=== PATIENT | male | born 1990 | race Caucasian/White ===

== ENCOUNTER 2016-11-15 20:02 | Emergency (ER) | payer OTHER ==
--- NOTE | 2016-11-15 23:02 | ED NURSING NOTES ---
Clinical Report - Nurses [facility] [address] [place] [address] 11/15/2016 20:01 Patient: JINA TOLEDO TRIAGE Triage time 20:15 Nov 15 2016. Chief Complaint: (Tachycardia). Alert. BRYANNA COMA SCORE: [place] Coma Scale: 15- eyes open spontaneously (4); best verbal response- oriented x 4 (5); best motor response- obeys commands (6). --20:31 Constantino Brenner R.N. 20:21 11/15/16. BP: 90/59. HR: 117. RR: 16. O2 saturation: 99% on room air. Temp: 99.3 F (oral). Pain level now: 2/10. Additional comments: Painful joints. --20:31 Constantino Brenner R.N. 20:25. --21:17 Constantino Brenner R.N. Weight: 77.1 kg stated. Height/Length: 71 inches Per Patient. BMI: 23.7. --20:24 Constantino Brenner R.N. Medications Suboxone Sublingual. --20:27 Constantino Brenner R.N. Allergies No Known Drug Allergy. --20:26 Constantino Brenner R.N. Medication/allergy information source: the patient. --20:31 Constantino Brenner R.N. History Arrived by EMS, and (MEDIC 46). Primary physician (Dori). ( Tachycardia after injecting Methamphetamine this morning @ 0400.). This started today. Reports muscle aches. Treatment LINE APPLIANCE ASSEMBLER: None. PAST MEDICAL HX: Immunizations: up-to-date. SOCIAL HX: Heavy tobacco smoker- 1 pack per day. History of drug use: heroin, methamphetamines, marijuana. No alcohol use. ABUSE ASSESSMENT: No report of abuse. FALL RISK ASSESSMENT: Fall risk assessment completed. No fall risk identified. NUTRITIONAL RISK ASSESSMENT: The nutritional risk assessment revealed no deficiencies. FUNCTIONAL ASSESSMENT: Functional assessment: no impairments noted. LEARNING NEEDS ASSESSMENT: The learning needs assessment revealed no barriers. SKIN INTEGRITY ASSESSMENT: Skin integrity risk assessment completed. No skin integrity risk identified. --20:31 Constantino Brennre R.N. ( Laceration to (L) Forehead, which pt states that he got yesterday when he fell and hit a piece of furniture..). --21:17 Constantino Brenner R.N. PROBLEMS: Narcotic Withdrawal. Substance Abuse. --20:30 Constantino Brenner R.N. ADDITIONAL SURGERIES: Knee Surgery. --20:30 Constantino Brenner R.N. Interventions ID band on patient. To treatment room. --20:31 Constantino Brenner R.N. PHYSICAL ASSESSMENT Ambulatory to room. GENERAL / NEURO / PSYCH: Alert. Oriented X 4. HEENT: No facial asymmetry noted. Mucous membranes are pink. RESPIRATORY: Respirations not labored. CVS: Cardiac rhythm: sinus tachycardia. GI / : Abdomen soft and nontender. SKIN: Skin intact. Skin is warm and dry. Normal skin turgor. --20:32 Constantino Brenner R.N. NURSING PROGRESS NOTES monitoring specialist, pulse oximeter and NIBP monitor placed on patient; monitoring specialist- Lead II and V1; monitor alarms on. Patient gowned. Reassurance given. Patient identifiers checked. Call light placed in reach. Side rails up. Bed placed in lowest position. Brakes of bed on. Patient ready for evaluation- chart flagged and ED physician notified. --20:33 Constantino Brenner R.N. EKG time: (2042). EKG was ordered, performed by a tech and shown to the PA. --20:47 Amanda Kelly Wound irrigated; patient tolerated procedure well (2100: wound irrigated with sodium chloride). --21:04 Amanda Kelly 20:52 11/15/2016 Site #1 started via IV in the right hand with an 20g angiocath, with aseptic technique and good blood return; one attempt. Blood drawn: rainbow set. Labeled in the presence of the patient and sent to the lab. Saline lock flushed with 10 mL saline. --21:07 Constantino Brenner R.N. 20:57 11/15/2016 Started bag #1 1000 mL IV Fluids IV NS (Saline); at 1000 mL/hr over 60 minute(s) via site #1. Allergies verified and confirmed 5 rights. IV patency established. IV site checked: no pain, redness, or swelling. IV flushed thoroughly pre- and post-medication administration. --21:07 Constantino Brenner R.N. 21:33 11/15/16. BP: 128/71. HR: 111. RR: 16. O2 saturation: 97% on room air. --21:34 Constantino Brenner R.N. 22:10 11/15/2016 IV Fluids IV NS Bag Change: bag #1 infused. Total amount infused: 1000. STARTED bag #2 (1000 mL) at 1000 mL/hr. Confirmed 5 rights. IV patency established. IV site checked: no pain, redness, or swelling. IV flushed thoroughly. --22:35 Constantino Brenner R.N. 22:30 11/15/16. BP: 126/82. HR: 122. RR: 16. O2 saturation: 99%. Pain level now: 11/12. --22:52 Constantino Brenner R.N. DISPOSITION / DISCHARGE Condition at departure: improved. The goals identified in the patient's plan of care were met. Reviewed medication(s) side effects, precautions, dosing and course information. Prescription(s) given to the patient. Patient verbalized understanding. Written instructions provided in Hebrew. The patient was discharged home and accompanied by parent. He left the Emergency Department ambulatory and via private vehicle. Parent driving. FALL RISK ASSESSMENT: Fall risk assessment completed. No fall risk identified. --00:03 Tino Nicole R.N. 00:01 11/16/16. BP: 107/71 taken on the left arm, via an automated monitor, while lying. HR: 115. RR: 18. O2 saturation: 99%. Temp: 98.2 F (oral). --00:03 Tino Nicole R.N. 00:03 11/16/2016 Site #1 removed upon discharge. Catheter intact. --00:03 Tino Nicole R.N. Locked/Released at 11/16/2016 0:06 by Tino Nicole R.N.
--- NOTE | 2016-11-15 23:02 | ED ORDER SUMMARY ---
..... Patient: JINA TOLEDO OrderSheet [facility] VisitID: [id number] [place] [address] 26y, M Registration Date/Time: 11/15/2016 ORDER SHEET Weight: 77.1 kg (stated) Allergies: No Known Drug Allergy GENERAL ORDERS: Audit Director (Continuous) (20:24 11/15/2016 EKoroleva P.A.-C) (Ack 20:28 LMuller) (21:06 JRomanelli R.N.) CBC w Diff Urgent (20:24 11/15/2016 EKoroleva P.A.-C) (Ack 20:28 LMuller) (21:06 JRomanelli R.N.) BMP Urgent (20:11/15/2016 EKoroleva P.A.-C) (Ack 20:28 LMuller) (21:06 JRomanelli R.N.) EKG - ER Stat (20:24 11/15/2016 EKoroleva P.A.-C) (Ack 20:28 LMuller) (20:42 LMuller) Urine Drug Screen Urgent (22:02 11/15/2016 EKoroleva P.A.-C) (Ack 22:21 CHategekimana) (22:22 CHategekimana) UA-Culture if indicated Urgent (22:02 11/15/2016 EKoroleva P.A.-C) (Ack 22:21 CHategekimana) (22:22 CHategekimana) MEDICATION ORDERS: IV FLUIDS: IV NS : initial bolus 1000 mL (1000 mL/hr), then 1000 mL/hr for X1 (NOW); Nic (20:24 11/15/2016 EKoroleva P.A.-C) (21:07 JRomanelli R.N.) ORDER SHEET NOTES: [Electronically signed by Laina Gates P.A.-C (22:41 11/15/2016)] [Electronically signed by Tino Nicole R.N. (00:06 11/16/2016)] [Electronically locked/signed by Tino Nicole R.N. (00:06 11/16/2016)]
--- NOTE | 2016-11-15 23:02 | ED NURSING NOTES ---
Clinical Report - Nurses [facility] [address] [place] [address] 11/15/2016 20:01 Patient: JINA TOLEDO TRIAGE Triage time 20:15 Nov 15 2016. Chief Complaint: (Tachycardia). Alert. BRYANNA COMA SCORE: [place] Coma Scale: 15- eyes open spontaneously (4); best verbal response- oriented x 4 (5); best motor response- obeys commands (6). --20:31 Constantino Brenner R.N. 20:21 11/15/16. BP: 90/59. HR: 117. RR: 16. O2 saturation: 99% on room air. Temp: 99.3 F (oral). Pain level now: 2/10. Additional comments: Painful joints. --20:31 Constantino Brenner R.N. 20:25. --21:17 Constantino Brenner R.N. Weight: 77.1 kg stated. Height/Length: 71 inches Per Patient. BMI: 23.7. --20:24 Constantino Brenner R.N. Medications Suboxone Sublingual. --20:27 Constantino Brenner R.N. Allergies No Known Drug Allergy. --20:26 Constantino Brenner R.N. Medication/allergy information source: the patient. --20:31 Constantino Brenner R.N. History Arrived by EMS, and (MEDIC 46). Primary physician (Dori). ( Tachycardia after injecting Methamphetamine this morning @ 0400.). This started today. Reports muscle aches. Treatment DEVELOPMENT INTERN: None. PAST MEDICAL HX: Immunizations: up-to-date. SOCIAL HX: Heavy tobacco smoker- 1 pack per day. History of drug use: heroin, methamphetamines, marijuana. No alcohol use. ABUSE ASSESSMENT: No report of abuse. FALL RISK ASSESSMENT: Fall risk assessment completed. No fall risk identified. NUTRITIONAL RISK ASSESSMENT: The nutritional risk assessment revealed no deficiencies. FUNCTIONAL ASSESSMENT: Functional assessment: no impairments noted. LEARNING NEEDS ASSESSMENT: The learning needs assessment revealed no barriers. SKIN INTEGRITY ASSESSMENT: Skin integrity risk assessment completed. No skin integrity risk identified. --20:31 Constantino Brenner R.N. ( Laceration to (L) Forehead, which pt states that he got yesterday when he fell and hit a piece of furniture..). --21:17 Constantino Brenner R.N. PROBLEMS: Narcotic Withdrawal. Substance Abuse. --20:30 Constantino Brenner R.N. ADDITIONAL SURGERIES: Knee Surgery. --20:30 Constantino Brenner R.N. Interventions ID band on patient. To treatment room. --20:31 Constantino Brenner R.N. PHYSICAL ASSESSMENT Ambulatory to room. GENERAL / NEURO / PSYCH: Alert. Oriented X 4. HEENT: No facial asymmetry noted. Mucous membranes are pink. RESPIRATORY: Respirations not labored. CVS: Cardiac rhythm: sinus tachycardia. GI / : Abdomen soft and nontender. SKIN: Skin intact. Skin is warm and dry. Normal skin turgor. --20:32 Constantino Brenner R.N. NURSING PROGRESS NOTES processor helper, pulse oximeter and NIBP monitor placed on patient; correctional officer chief- Lead II and V1; monitor alarms on. Patient gowned. Reassurance given. Patient identifiers checked. Call light placed in reach. Side rails up. Bed placed in lowest position. Brakes of bed on. Patient ready for evaluation- chart flagged and ED physician notified. --20:33 Constantino Brenner R.N. EKG time: (2042). EKG was ordered, performed by a tech and shown to the PA. --20:47 Amanda Kelly Wound irrigated; patient tolerated procedure well (2100: wound irrigated with sodium chloride). --21:04 Amanda Kelly 20:52 11/15/2016 Site #1 started via IV in the right hand with an 20g angiocath, with aseptic technique and good blood return; one attempt. Blood drawn: rainbow set. Labeled in the presence of the patient and sent to the lab. Saline lock flushed with 10 mL saline. --21:07 Constantino Brenner R.N. 20:57 11/15/2016 Started bag #1 1000 mL IV Fluids IV NS (Saline); at 1000 mL/hr over 60 minute(s) via site #1. Allergies verified and confirmed 5 rights. IV patency established. IV site checked: no pain, redness, or swelling. IV flushed thoroughly pre- and post-medication administration. --21:07 Constantino Brenner R.N. 21:33 11/15/16. BP: 128/71. HR: 111. RR: 16. O2 saturation: 97% on room air. --21:34 Constantino Brenner R.N. 22:10 11/15/2016 IV Fluids IV NS Bag Change: bag #1 infused. Total amount infused: 1000. STARTED bag #2 (1000 mL) at 1000 mL/hr. Confirmed 5 rights. IV patency established. IV site checked: no pain, redness, or swelling. IV flushed thoroughly. --22:35 Constantino Brenner R.N. 22:30 11/15/16. BP: 126/82. HR: 122. RR: 16. O2 saturation: 99%. Pain level now: 11/12. --22:52 Constantino Brenner R.N. DISPOSITION / DISCHARGE Condition at departure: improved. The goals identified in the patient's plan of care were met. Reviewed medication(s) side effects, precautions, dosing and course information. Prescription(s) given to the patient. Patient verbalized understanding. Written instructions provided in Yakut. The patient was discharged home and accompanied by parent. He left the Emergency Department ambulatory and via private vehicle. Parent driving. FALL RISK ASSESSMENT: Fall risk assessment completed. No fall risk identified. --00:03 Tino Nicole R.N. 00:01 11/16/16. BP: 107/71 taken on the left arm, via an automated monitor, while lying. HR: 115. RR: 18. O2 saturation: 99%. Temp: 98.2 F (oral). --00:03 Tino Nicole R.N. 00:03 11/16/2016 Site #1 removed upon discharge. Catheter intact. --00:03 Tino Nicole R.N. Locked/Released at 11/16/2016 0:06 by Tino Nicole R.N.
--- NOTE | 2016-11-15 23:02 | ED CLINICAL REPORT ---
Clinical Report - Physicians/Mid Levels [facility] [address] [place] [address] 11/15/2016 20:01 Patient: JINA TOLEDO Time Seen: 20:33 Nov 15 2016. Arrived- By ambulance. Historian- EMS personnel. HISTORY OF PRESENT ILLNESS Chief Complaint: "GOT THE SHAKES" and BIZARRE BEHAVIOR. Symptoms started today. No fever or nausea. Pt using meth, reports agitated at home, family concerned, tachycardic, injury to head, unsure, no loc. NO headache. REVIEW OF SYSTEMS The patient has not had weight loss. No headache, dizziness, chest pain, sore throat or cough. No difficulty with urination, joint pain or enlarged lymph nodes. All systems otherwise negative, except as recorded above. SOCIAL HISTORY History of drug use iv heroin/meth. suboxone. Has social support. Has place to stay. ADDITIONAL NOTES The nursing notes have been reviewed. PHYSICAL EXAM Vital Signs: 11/15/2016 20:21 BP: 90/59. HR: 117. RR: 16. O2 saturation: 99%. Temp: 99.3 F. Pain level now: 2/10. Appearance: Alert. Head: Head atraumatic. Forehead: superficial laceration of the central forehead (abrasion at hair line.). No puncture wound, foreign body or deformity. Eyes: Pupils equal, round and reactive to light. ENT: Normal ENT inspection. Airway intact. Moist mucous membranes. No trouble handling secretions. Neck: Normal inspection. Neck supple. CVS: Tachycardia. Heart sounds normal. Respiratory: No respiratory distress. Breath sounds normal. Abdomen: Soft. No abdominal tenderness. Back: Normal inspection. No CVA tenderness. Neuro: Alert. Oriented X 3. Mood/affect normal. Cranial nerves normal (as tested). No cerebellar findings. LABS, X-RAYS, AND EKG EKG: EKG time: (2042). No acute process. No acute ischemia. Rate: 107. Tachycardia (107). Normal P waves. Normal HILARIO. Normal ST and T waves and QT. The study has been independently viewed by me. The EKG appears to be a good tracing. Laboratory Tests: UA-Culture if indicated: (YRIS: 11/15/2016 22:08) ( [facility] 11/15/2016 22:33) Final results Test Result Flag Units (Reference) URINE COLOR YELLOW URINE APPEARANCE SLIGHTLY HAZY URINE GLUCOSE NEGATIVE (NEGATIVE) URINE BILIRUBIN NEGATIVE (NEGATIVE) URINE KETONE 1+ (NEGATIVE) URINE SPECIFIC GRAVITY >= 1.030 (1.010-1.030) URINE PH 5.5 (5.0-8.0) URINE PROTEIN 1+ (NEGATIVE) URINE UROBILINOGEN 0.2 EU/dL (0.2-1.0) URINE NITRITE NEGATIVE (NEGATIVE) URINE BLOOD NEGATIVE (NEGATIVE) URINE LEUK ESTERASE NEGATIVE (NEGATIVE) URINE RBC 0-1 rbc/hpf (0-1) URINE WBC 0-1 wbc/hpf (0-1) URINE EPITHELIAL CELLS NONE SEEN EPI/hpf (0-5) URINE BACTERIA NONE SEEN (NONE SEEN) URINE COMMENT CULT NOT INDICATED HYALINE CAST: 5-10/LPFURINE CULTURES ARE SET-UP BASED ON THE FOLLOWING CRITERIA:POSITIVE NITRITEPOSITIVE LEUKOCYTE ESTERASEGREATER THAN 10 WHITE BLOOD CELLSMODERATE (2+) OR GREATER BACTERIA CBC w Diff: (YRIS: 11/15/2016 20:45) ( [facility] [place] 11/15/2016 21:03) Final results Test Result Flag Units (Reference) WHITE BLOOD COUNT 11.9 H K/uL (4.5-11.5) RED BLOOD COUNT 4.41 L M/uL (4.50-5.90) HEMOGLOBIN 13.1 L gm/dL (13.5-17.5) HEMATOCRIT 39.3 L % (41.0-53.0) MEAN CELL VOLUME 89 fL (80-100) MEAN CORPUSCULAR HGB 30 pg (26-34) MEAN CORPUSCULAR HGB CONC 33 g/dL (31-37) RED CELL DISTRIBUTION WIDTH 14.3 % (11.6-14.8) PLATELET COUNT 268 K/uL (150-400) NEUTROPHIL % 69.0 % (50-75) LYMPH % 16.4 L % (25-40) MONO % 11.6 % (3-14) EOSINOPHIL % 1.4 % (0-4) BASOPHIL % 1.6 % (0-2) Urine Drug Screen: (YRIS: 11/15/2016 22:08) ( MsgRcvd 11/15/2016 22:38) Final results Test Result Flag Units (Reference) AMPHETAMINE/METHAMPHETAMINE POSITIVE H (NEGATIVE) BARBITURATE NEGATIVE (NEGATIVE) BENZODIAZEPINE NEGATIVE (NEGATIVE) CANNABINOID POSITIVE H (NEGATIVE) COCAINE NEGATIVE (NEGATIVE) ECSTASY POSITIVE H (NEGATIVE) METHADONE NEGATIVE (NEGATIVE) OPIATE POSITIVE H (NEGATIVE) The urine drug screen is a qualitative screening test fordrug overdose and abuse. All screen results should beconsidered as presumptive.Drugs screened for are as follows:BenzodiazepinesCocaineAmphetamines/MetamphetaminesTHC (Tetrahydrocannabinol)OpiatesBarbituratesEcstasyMethadonePositive results are unconfirmed. For confirmation, notifythe lab for the specimen to be sent to the reference lab.All confirmations must be performed by a differentmethodology.The ingestion of natural herbal and plant productscontaining Ephedra/Ephedra metabolites can produce in urineone or more substances capable of cross reacting withamphetamine/methamphetamine immunoassays. These testsprovide a preliminary result only. A more specificalternative chemical method must be used to obtain aconfirmed analytical result. BMP: (YRIS: 11/15/2016 20:45) ( MsgRcvd 11/15/2016 21:43) Final results Test Result Flag Units (Reference) GLUCOSE 69 L mg/dL (70-110) BUN 18 mg/dL (7-18) CREATININE 1.0 mg/dL (0.6-1.3) Estimated GFR >60 mL/min Estimated GFR- >60 mL/min Note: Persistent reduction over 3 months in eGFR<60 mL/min/1.73 m2 defines CKD. Patients with eGFR values>=60 mL/min/1.73 m2 may also have CKD if evidence ofpersistent proteinuria. Additional information may be foundat www.kidney.org. SODIUM 133 L mmol/L (136-145) POTASSIUM 4.1 mmol/L (3.5-5.1) CHLORIDE 95 L mmol/L (98-107) CARBON DIOXIDE 21 mmol/L (21-32) CALCIUM 9.1 mg/dL (8.5-10.1) . PROGRESS AND PROCEDURES Course of Care: Pt in the er with tachycardia, moving, and under influence. Small abrasion to scalp, and otherwise aao x 3. Pt with no si/ hi Poly substance abuse. Given IV NS in the ER. 11/15/2016 21:33 BP: 128/71. HR: 111. RR: 16. O2 saturation: 97%. Patient is stable. Patient/family counseled. Disposition: Discharged. CLINICAL IMPRESSION Single superficial abrasion to the forehead. Lifestyle Substance Problem. INSTRUCTIONS Prescription Medications: Zofran (orally disintegrating tablets) 4 mg: take 1 orally for 3 days as needed for nausea. Dispense ten (10). No refill. Substitution is permissible. Follow-up: Follow up with your doctor in three days. (Electronically signed by Laina Gates P.A.-C 11/15/2016 22:41)
--- NOTE | 2016-11-15 23:02 | ED ORDER SUMMARY ---
..... Patient: JINA TOLEDO OrderSheet [facility] VisitID: [id number] [place] [address] 26y, M Registration Date/Time: 11/15/2016 ORDER SHEET Weight: 77.1 kg (stated) Allergies: No Known Drug Allergy GENERAL ORDERS: Automation Developer (Continuous) (20:24 11/15/2016 EKoroleva P.A.-C) (Ack 20:28 LMuller) (21:06 JRomanelli R.N.) CBC w Diff Urgent (20:24 11/15/2016 EKoroleva P.A.-C) (Ack 20:28 LMuller) (21:06 JRomanelli R.N.) BMP Urgent (20:11/15/2016 EKoroleva P.A.-C) (Ack 20:28 LMuller) (21:06 JRomanelli R.N.) EKG - ER Stat (20:24 11/15/2016 EKoroleva P.A.-C) (Ack 20:28 LMuller) (20:42 LMuller) Urine Drug Screen Urgent (22:02 11/15/2016 EKoroleva P.A.-C) (Ack 22:21 CHategekimana) (22:22 CHategekimana) UA-Culture if indicated Urgent (22:02 11/15/2016 EKoroleva P.A.-C) (Ack 22:21 CHategekimana) (22:22 CHategekimana) MEDICATION ORDERS: IV FLUIDS: IV NS : initial bolus 1000 mL (1000 mL/hr), then 1000 mL/hr for X1 (NOW); Nic (20:24 11/15/2016 EKoroleva P.A.-C) (21:07 JRomanelli R.N.) ORDER SHEET NOTES: [Electronically signed by Laina Gates P.A.-C (22:41 11/15/2016)] [Electronically signed by Tino Nicole R.N. (00:06 11/16/2016)] [Electronically locked/signed by Tino Nicole R.N. (00:06 11/16/2016)]
--- NOTE | 2016-11-16 00:07 | ED MED RECONCILIATION SUMMARY ---
Patient: JINA TOLEDO Medication Reconciliation Report [facility] VisitID: [id number] [address] [place] [address] 26y, M Registration Date/Time: 11/15/2016 Weight: 77.1 kg Height/Length: 71 in. BMI: 23.7 ALLERGIES: No Known Drug Allergy The patient's Home Medications are listed below: THE FOLLOWING MEDICATIONS NEED TO BE RECONCILED: Suboxone Sublingual The source(s) of the original Home Medication information: patient The following Medications were given to the patient in the Emergency Department: IV NS IV Fluids bolus 0, then 1000 mL/hr, administered: 11/15/2016 8:57:00 PM The following Medications were prescribed to the patient: Zofran (orally disintegrating tablets) 4 mg: take 1 orally for 3 days as needed for nausea. Dispense ten (10). No refill. Substitution is permissible. -- Laina Gates, PCitlalliC
--- NOTE | 2016-11-16 00:07 | ED DISCHARGE INSTRUCTIONS ---
Patient: JINA TOLEDO General Instructions [facility] VisitID: [id number] [place] [address] 26y, M Registration Date/Time: 11/15/2016 Single superficial abrasion to the forehead. Lifestyle Substance Problem. INSTRUCTIONS Prescription Medications: Zofran (orally disintegrating tablets) 4 mg: take 1 orally for 3 days as needed for nausea. Dispense ten (10). No refill. Substitution is permissible. Follow-up: Follow up with your doctor in three days. ADDITIONAL INFORMATION Abrasions Abrasions are skin scrapes. Their treatment depends on how large and deep the abrasion is. Home Care: If you were given a bandage, change it once a day. If your bandage sticks to the wound, soak it in warm water until it loosens. Wash the area with soap and water to remove all the cream/ointment. You may do this in a sink, under a tub faucet or shower. Rinse off the soap and pat dry with a clean towel. Reapply cream/ointment according to your doctor's instructions. This will prevent infection and help prevent the bandage from sticking. Cover the wound with a fresh non-stick bandage (Telfa). Repeat steps 1 to 4 daily, or as directed by your doctor. If the bandage becomes wet or dirty, change it as soon as possible. You may use acetaminophen (Tylenol) or ibuprofen (Motrin, Advil) to control pain, unless another pain medicine was prescribed. [ NOTE : If you have chronic liver or kidney disease or ever had a stomach ulcer or GI bleeding, talk with your doctor before using these medicines.] Do not use ibuprofen in children under six months of age. Follow Up with your physician or this facility as directed by our staff. Most skin wounds heal within ten days. However, an infection may occur despite proper treatment. Therefore, look for the early signs of infection listed below. Get Prompt Medical Attention if any of the following occur: Increasing pain in the wound Increasing redness or swelling Pus coming from the wound Fever of 100.4F (38C) or higher, or as directed by your healthcare provider Ondansetron Hydrochloride Oral tablet What is this medicine? ONDANSETRON (on JULIA se tripp) is used to treat nausea and vomiting caused by chemotherapy. It is also used to prevent or treat nausea and vomiting after surgery. How should I use this medicine? Take this medicine by mouth with a glass of water. Follow the directions on your prescription label. Take your doses at regular intervals. Do not take your medicine more often than directed. Talk to your motor vehicle clerk regarding the use of this medicine in children. Special care may be needed. What side effects may I notice from receiving this medicine? Side effects that you should report to your doctor or health child care centre director as soon as possible: allergic reactions like skin rash, itching or hives, swelling of the face, lips or tongue breathing problems dizziness fast or irregular heartbeat feeling faint or lightheaded, falls fever and chills swelling of the hands or feet tightness in the chest Side effects that usually do not require medical attention (report to your doctor or health child care centre director if they continue or are bothersome): constipation or diarrhea headache What may interact with this medicine? Do not take this medicine with any of the following medications: -apomorphine -cisapride -dofetilide -dronedarone -pimozide -thioridazine -ziprasidone This medicine may also interact with the following medications: -carbamazepine -phenytoin -rifampicin -tramadol -other medicines that prolong the QT interval (cause an abnormal heart rhythm) What if I miss a dose? If you miss a dose, take it as soon as you can. If it is almost time for your next dose, take only that dose. Do not take double or extra doses. Where should I keep my medicine? Keep out of the reach of children. Store between 2 and 30 degrees C (36 and 86 degrees F). Throw away any unused medicine after the expiration date. What should I tell my health care provider before I take this medicine? They need to know if you have any of these conditions: heart disease history of irregular heartbeat liver disease low levels of magnesium or potassium in the blood an unusual or allergic reaction to ondansetron, granisetron, other medicines, foods, dyes, or preservatives or trying to get breast-feeding What should I watch for while using this medicine? Check with your doctor or health child care centre director right away if you have any sign of an allergic reaction. You have been given the following additional information: Abrasion Ondansetron Hydrochloride Oral tablet (Electronically signed by Laina Gates P.A.-C 11/15/2016 22:41)
--- NOTE | 2016-11-16 00:07 | ED DISCHARGE INSTRUCTIONS ---
Patient: JINA TOLEDO General Instructions [facility] VisitID: [id number] [place] [address] 26y, M Registration Date/Time: 11/15/2016 Single superficial abrasion to the forehead. Lifestyle Substance Problem. INSTRUCTIONS Prescription Medications: Zofran (orally disintegrating tablets) 4 mg: take 1 orally for 3 days as needed for nausea. Dispense ten (10). No refill. Substitution is permissible. Follow-up: Follow up with your doctor in three days. ADDITIONAL INFORMATION Abrasions Abrasions are skin scrapes. Their treatment depends on how large and deep the abrasion is. Home Care: If you were given a bandage, change it once a day. If your bandage sticks to the wound, soak it in warm water until it loosens. Wash the area with soap and water to remove all the cream/ointment. You may do this in a sink, under a tub faucet or shower. Rinse off the soap and pat dry with a clean towel. Reapply cream/ointment according to your doctor's instructions. This will prevent infection and help prevent the bandage from sticking. Cover the wound with a fresh non-stick bandage (Telfa). Repeat steps 1 to 4 daily, or as directed by your doctor. If the bandage becomes wet or dirty, change it as soon as possible. You may use acetaminophen (Tylenol) or ibuprofen (Motrin, Advil) to control pain, unless another pain medicine was prescribed. [ NOTE : If you have chronic liver or kidney disease or ever had a stomach ulcer or GI bleeding, talk with your doctor before using these medicines.] Do not use ibuprofen in children under six months of age. Follow Up with your physician or this facility as directed by our staff. Most skin wounds heal within ten days. However, an infection may occur despite proper treatment. Therefore, look for the early signs of infection listed below. Get Prompt Medical Attention if any of the following occur: Increasing pain in the wound Increasing redness or swelling Pus coming from the wound Fever of 100.4F (38C) or higher, or as directed by your healthcare provider Ondansetron Hydrochloride Oral tablet What is this medicine? ONDANSETRON (on JULIA se tripp) is used to treat nausea and vomiting caused by chemotherapy. It is also used to prevent or treat nausea and vomiting after surgery. How should I use this medicine? Take this medicine by mouth with a glass of water. Follow the directions on your prescription label. Take your doses at regular intervals. Do not take your medicine more often than directed. Talk to your surgical device sales representative regarding the use of this medicine in children. Special care may be needed. What side effects may I notice from receiving this medicine? Side effects that you should report to your doctor or health rn patient care as soon as possible: allergic reactions like skin rash, itching or hives, swelling of the face, lips or tongue breathing problems dizziness fast or irregular heartbeat feeling faint or lightheaded, falls fever and chills swelling of the hands or feet tightness in the chest Side effects that usually do not require medical attention (report to your doctor or health rn patient care if they continue or are bothersome): constipation or diarrhea headache What may interact with this medicine? Do not take this medicine with any of the following medications: -apomorphine -cisapride -dofetilide -dronedarone -pimozide -thioridazine -ziprasidone This medicine may also interact with the following medications: -carbamazepine -phenytoin -rifampicin -tramadol -other medicines that prolong the QT interval (cause an abnormal heart rhythm) What if I miss a dose? If you miss a dose, take it as soon as you can. If it is almost time for your next dose, take only that dose. Do not take double or extra doses. Where should I keep my medicine? Keep out of the reach of children. Store between 2 and 30 degrees C (36 and 86 degrees F). Throw away any unused medicine after the expiration date. What should I tell my health care provider before I take this medicine? They need to know if you have any of these conditions: heart disease history of irregular heartbeat liver disease low levels of magnesium or potassium in the blood an unusual or allergic reaction to ondansetron, granisetron, other medicines, foods, dyes, or preservatives or trying to get breast-feeding What should I watch for while using this medicine? Check with your doctor or health rn patient care right away if you have any sign of an allergic reaction. You have been given the following additional information: Abrasion Ondansetron Hydrochloride Oral tablet (Electronically signed by Laina Gates P.A.-C 11/15/2016 22:41)
--- NOTE | 2016-11-16 00:07 | ED MAR SUMMARY ---
..... Medication Administration Record [facility] [address] [place] [address] Patient: JINA TOLEDO Visit ID: [id number] 26y, M Weight: 77.1 kg Height/Length: 71 in BMI: 23.7 ALLERGIES: No Known Drug Allergy Start 20:57 11/15/2016 Constantino Brenner R.N. Medication Administered: IV NS (SALINE), Dose: IV Fluids over 60 minute(s), Rate: 1000 mL/hr, Dispensed: 1000 mL bag, Site: #1 right hand. Medication Ordered: IV NS : initial bolus 1000 mL (1000 mL/hr), then 1000 mL/hr for X1 (NOW); Nic.
--- NOTE | 2016-11-16 00:07 | ED MAR SUMMARY ---
..... Medication Administration Record [facility] [address] [place] [address] Patient: JINA TOLEDO Visit ID: [id number] 26y, M Weight: 77.1 kg Height/Length: 71 in BMI: 23.7 ALLERGIES: No Known Drug Allergy Start 20:57 11/15/2016 Constantino Brenner R.N. Medication Administered: IV NS (SALINE), Dose: IV Fluids over 60 minute(s), Rate: 1000 mL/hr, Dispensed: 1000 mL bag, Site: #1 right hand. Medication Ordered: IV NS : initial bolus 1000 mL (1000 mL/hr), then 1000 mL/hr for X1 (NOW); Nic.
--- NOTE | 2016-11-16 00:07 | ED MED RECONCILIATION SUMMARY ---
Patient: JINA TOLEDO Medication Reconciliation Report [facility] VisitID: [id number] [address] [place] [address] 26y, M Registration Date/Time: 11/15/2016 Weight: 77.1 kg Height/Length: 71 in. BMI: 23.7 ALLERGIES: No Known Drug Allergy The patient's Home Medications are listed below: THE FOLLOWING MEDICATIONS NEED TO BE RECONCILED: Suboxone Sublingual The source(s) of the original Home Medication information: patient The following Medications were given to the patient in the Emergency Department: IV NS IV Fluids bolus 0, then 1000 mL/hr, administered: 11/15/2016 8:57:00 PM The following Medications were prescribed to the patient: Zofran (orally disintegrating tablets) 4 mg: take 1 orally for 3 days as needed for nausea. Dispense ten (10). No refill. Substitution is permissible. -- Laina Gates, PCitlalliC
== END 2016-11-16 00:08 | disposition home or self-care (01) ==
LOC: ED SRH 20:02
DX: S00.81XA Abrasion of other part of head, initial encounter (principal); X58.XXXA Exposure to other specified factors, initial encounter; Y92.9 Unspecified place or not applicable; Y99.9 Unspecified external cause status; Y93.9 Activity, unspecified; F15.20 Other stimulant dependence, uncomplicated; Z72.89 Other problems related to lifestyle; R00.0 Tachycardia, unspecified
CPT/HCPCS: 90004; 90047; 92760; 92761; 92762; 92763; 92764; 92765; 92766; 92767; 95059

== ENCOUNTER 2017-03-31 12:12 | Emergency (ER) | payer OTHER ==
--- NOTE | 2017-03-31 17:09 | ED NURSING NOTES ---
Clinical Report - Nurses [facility] [place] [address] 03/31/2017 12:13 Patient: JINA TOLEDO TRIAGE Triage time 12:15. Acuity: LEVEL 3. Chief Complaint: DRUG OVERDOSE (Pt was apparently smoking heroin this morning, his friends attempted some CPR when he passed out, pt denies any chest discomfort). --12:25 Sofia Greene R.N. 12:15 03/31/17. BP: 133/79. HR: 79. RR: 6. O2 saturation: 96%. Temp: unable to obtain. Pain level now: 0/10. --12:25 Sofia Greene R.N. 12:26 03/31/17. End tidal CO2: 27 mmHg; with normal waveform via cannula device. --12:26 Sofia Greene R.N. 12:37 03/31/17. Temp: 96.2 F (tympanic). --12:38 Sofia Greene R.N. Weight: 74.8 kg stated. Height/Length: 72 inches Per Patient. BMI: 22.4. --12:18 Sofia Greene R.N. Medications None. --12:17 Sofia Greene R.N. Allergies No Known Drug Allergy. --12:17 Sofia Greene R.N. History Arrived by EMS. Historian: patient. This occurred today. SOCIAL HX: Heavy tobacco smoker (pipe)- less than 1 pack per day. Alcohol use; consumes beer. (5 beers 3 times per week). History of drug use: heroin, methamphetamines, marijuana. --12:25 Sofia Greene R.N. Interventions ID band on patient. To room. --12:25 Sofia Greene R.N. PHYSICAL ASSESSMENT 12:26 03/31/17. GENERAL / NEURO / PSYCH: Altered mental status: lethargic. --12:26 Sofia Greene R.N. NURSING PROGRESS NOTES 12:27 03/31/17. Patient identifiers checked. Call light placed in reach. Bed placed in lowest position. Patient ready for evaluation- chart flagged. --12:27 Sofia Greene R.N. 12:29 03/31/17. RR: 7. End tidal CO2: 30 mmHg. Additional comments: Pt placed in direct view of nurses station. --12:29 Sofia Greene R.N. 12:37 03/31/2017 Site #1 started via IV in the left antecubital space with an 20g angiocath, with aseptic technique and good blood return; one attempt. Blood drawn: rainbow set. Labeled in the presence of the patient and sent to the lab. Saline lock flushed with 10 mL saline. --12:42 Anastacio Delgadillo R.N. 12:50 03/31/17. ( Pt's alarms going off, apneic at times, and other times RR is 3 to 10 breaths per minute. Narcan given.). --12:50 Sofia Greene R.N. 12:51 03/31/2017 Started bag #1 1000 mL IV Fluids IV NS (Saline); at 1000 mL/hr via site #1 via IV pump. Confirmed 5 rights. IV patency established. IV site checked: no pain, redness, or swelling. IV flushed thoroughly pre- and post-medication administration. --12:56 Sofia Greene R.N. 12:51 03/31/2017 Naloxone IVP 0.4 mg given over 2 minute(s) via site #1. Confirmed 5 rights. --12:56 Sofia Greene R.N. 13:03 03/31/17. Reassessment after medication administered. Overall patient status is improved. GENERAL / NEURO / PSYCH: Alert. ( Patient rounding). --13:03 Tanisha Cormier R.N. 13:03/31/17. BP: 132/98. HR: 83. RR: 12. O2 saturation: 100%. --13:03 Tanisha Cormier R.N. 13:03/31/17. Patient ID band checked for patient name and birthdate: patient confirmed. Instructions provided to collect clean catch urine and patient verbalized understanding. Clean catch urine collected with return of yellow-colored clear urine; sample sent to lab for urinalysis. Specimen labeled in the presence of the patient. --13:25 Tanisha Cormier R.N. 15:22 03/31/17. BP: 122/67. HR: 91. RR: 19. O2 saturation: 99%. Pain level now: 0/10. --15:23 Sofia Greene R.N. DISPOSITION / DISCHARGE 17:04 03/31/17. BP: 127/66. HR: 88. RR: 18. O2 saturation: 100%. Temp: 97.5 F. Pain level now: 0/10. --17:04 Sofia Greene R.N. Departure time: 1711. Condition at departure: improved. No learning barriers present. Reviewed warnings (Don't take recreational drugs). Reviewed referral to family practice for followup. Verbalized understanding. Written instructions provided. The patient was discharged home. He left the Emergency Department ambulatory and via private vehicle. Illuminator driving. --17:15 Sofia Greene R.N. Locked/Released at 03/31/2017 17:21 by Sofia Greene R.N.
--- NOTE | 2017-03-31 17:09 | ED ORDER SUMMARY ---
..... Patient: JINA TOLEDO OrderSheet [facility] VisitID: [id number] [place] [address] 27y, M Registration Date/Time: 03/31/2017 ORDER SHEET Weight: 74.8 kg (stated) Allergies: No Known Drug Allergy GENERAL ORDERS: Cardiac Panel Stat (12:03/31/2017 Edu BACK) (Ack 12:51 TBergley) (12:54 TBergley) Urine Drug Screen Urgent (:03/31/2017 Edu BACK) (Ack 12:51 TBergley) (14:16 LSullivan R.N.) Ethyl Alcohol Urgent (:03/31/2017 Edu BACK) (Ack 12:51 TBergley) (12:54 TBergley) Acetaminophen Level Urgent (:03/31/2017 Edu BACK) (Ack 12:51 TBergley) (12:54 TBergley) Salicylate Level Urgent (:03/31/2017 Edu BACK) (Ack 12:51 TBergley) (12:54 TBergley) MEDICATION ORDERS: IV FLUIDS: IV NS : initial bolus 1000 mL (1000 mL/hr), then none - for X1 (NOW); Routine (:03/31/2017 Edu BACK) (12:56 LSullivan R.N.) Naloxone IV 0.4 mg (NOW) (:03/31/2017 Edu BACK) (12:56 LSullivan R.N.) ORDER SHEET NOTES: [Electronically signed by Sofia Greene R.N. (17:03/31/2017)] [Electronically signed by Vince Cruz MD (09:18 04/01/2017)] [Electronically locked/signed by Sofia Greene R.N. (17:03/31/2017)]
--- NOTE | 2017-03-31 17:09 | ED NURSING NOTES ---
Clinical Report - Nurses [facility] [place] [address] 03/31/2017 12:13 Patient: JINA TOLEDO TRIAGE Triage time 12:15. Acuity: LEVEL 3. Chief Complaint: DRUG OVERDOSE (Pt was apparently smoking heroin this morning, his friends attempted some CPR when he passed out, pt denies any chest discomfort). --12:25 Sofia Greene R.N. 12:15 03/31/17. BP: 133/79. HR: 79. RR: 6. O2 saturation: 96%. Temp: unable to obtain. Pain level now: 0/10. --12:25 Sofia Greene R.N. 12:26 03/31/17. End tidal CO2: 27 mmHg; with normal waveform via cannula device. --12:26 Sofia Greene R.N. 12:37 03/31/17. Temp: 96.2 F (tympanic). --12:38 Sofia Greene R.N. Weight: 74.8 kg stated. Height/Length: 72 inches Per Patient. BMI: 22.4. --12:18 Sofia Greene R.N. Medications None. --12:17 Sofia Greene R.N. Allergies No Known Drug Allergy. --12:17 Sofia Greene R.N. History Arrived by EMS. Historian: patient. This occurred today. SOCIAL HX: Heavy tobacco smoker (pipe)- less than 1 pack per day. Alcohol use; consumes beer. (5 beers 3 times per week). History of drug use: heroin, methamphetamines, marijuana. --12:25 Sofia Greene R.N. Interventions ID band on patient. To room. --12:25 Sofia Greene R.N. PHYSICAL ASSESSMENT 12:26 03/31/17. GENERAL / NEURO / PSYCH: Altered mental status: lethargic. --12:26 Sofia Greene R.N. NURSING PROGRESS NOTES 12:27 03/31/17. Patient identifiers checked. Call light placed in reach. Bed placed in lowest position. Patient ready for evaluation- chart flagged. --12:27 Sofia Greene R.N. 12:29 03/31/17. RR: 7. End tidal CO2: 30 mmHg. Additional comments: Pt placed in direct view of nurses station. --12:29 Sofia rGeene R.N. 12:37 03/31/2017 Site #1 started via IV in the left antecubital space with an 20g angiocath, with aseptic technique and good blood return; one attempt. Blood drawn: rainbow set. Labeled in the presence of the patient and sent to the lab. Saline lock flushed with 10 mL saline. --12:42 Anastacio Delgadillo R.N. 12:50 03/31/17. ( Pt's alarms going off, apneic at times, and other times RR is 3 to 10 breaths per minute. Narcan given.). --12:50 Sofia Greene R.N. 12:51 03/31/2017 Started bag #1 1000 mL IV Fluids IV NS (Saline); at 1000 mL/hr via site #1 via IV pump. Confirmed 5 rights. IV patency established. IV site checked: no pain, redness, or swelling. IV flushed thoroughly pre- and post-medication administration. --12:56 Sofia Greene R.N. 12:51 03/31/2017 Naloxone IVP 0.4 mg given over 2 minute(s) via site #1. Confirmed 5 rights. --12:56 Sofia Greene R.N. 13:03 03/31/17. Reassessment after medication administered. Overall patient status is improved. GENERAL / NEURO / PSYCH: Alert. ( Patient rounding). --13:03 Tanisha Cormier R.N. 13:03/31/17. BP: 132/98. HR: 83. RR: 12. O2 saturation: 100%. --13:03 Tanisha Cormier R.N. 13:03/31/17. Patient ID band checked for patient name and birthdate: patient confirmed. Instructions provided to collect clean catch urine and patient verbalized understanding. Clean catch urine collected with return of yellow-colored clear urine; sample sent to lab for urinalysis. Specimen labeled in the presence of the patient. --13:25 Tanisha Cormier R.N. 15:22 03/31/17. BP: 122/67. HR: 91. RR: 19. O2 saturation: 99%. Pain level now: 0/10. --15:23 Sofia Greene R.N. DISPOSITION / DISCHARGE 17:04 03/31/17. BP: 127/66. HR: 88. RR: 18. O2 saturation: 100%. Temp: 97.5 F. Pain level now: 0/10. --17:04 Sofia Greene R.N. Departure time: 1711. Condition at departure: improved. No learning barriers present. Reviewed warnings (Don't take recreational drugs). Reviewed referral to family practice for followup. Verbalized understanding. Written instructions provided. The patient was discharged home. He left the Emergency Department ambulatory and via private vehicle. Clerk Entry Level driving. --17:15 Sofia Greene R.N. Locked/Released at 03/31/2017 17:21 by Sofia Greene R.N.
--- NOTE | 2017-03-31 17:09 | ED CLINICAL REPORT ---
Clinical Report - Physicians/Mid Levels [facility] [address] [place] [address] 03/31/2017 12:13 Patient: JINA TOLEDO Time Seen: 12:44 Guero 2016. Arrived- By ambulance. Historian- patient and EMS personnel. CPT: ER phys charges level 5 (#[id number]). HISTORY OF PRESENT ILLNESS Chief Complaint: DRUG OVERDOSE and INTOXICATION. This occurred just prior to arrival. Toxic symptoms present in ED. Single drug taken- Heroin. No situational problems or alcohol recently. History of recent narcotics use. The symptoms are described as moderate. No suicidal thoughts or hallucinations. Similar symptoms previously: None. Recent medical care: Not recently seen/assessed. REVIEW OF SYSTEMS No headache, dizziness, chest pain, palpitations or abdominal pain. No vomiting, diarrhea, sore throat, cough or skin rash. No enlarged lymph nodes. He has had weakness. He has had difficulty breathing (Very low respiratory rate and hypoventilation.). All systems otherwise negative, except as recorded above. PAST HISTORY No history of prior suicide attempt. No history of psychiatric illness. SOCIAL HISTORY History of drug use: heroin. Has social support. Has place to stay. ADDITIONAL NOTES The nursing notes have been reviewed. PHYSICAL EXAM Vital Signs: 03/31/2017 12:15 BP: 133/79. HR: 79. RR: 6. O2 saturation: 96%. Pain level now: 0/10. Appearance: No acute distress. Lethargic. Eyes: Pupils equal, round and reactive to light. Extraocular movements normal. Moderate horizontal nystagmus when looking laterally. ENT: Normal ENT inspection. TM's normal. Pharynx normal. No depression of the gag reflex. Neck: Normal inspection. Neck supple. CVS: Normal heart rate and rhythm. Heart sounds normal. Pulses normal. Respiratory: No respiratory distress. Decreased air movement. Breath sounds normal. Abdomen: Soft and nontender. Back: Normal inspection. Skin: Skin warm. Normal skin color. No rash. Extremities: Extremities exhibit normal ROM. No lower extremity edema. Neuro: Oriented X 3. Moderately altered mental status. Patient slow to respond. Eyes open spontaneously. Best verbal response: oriented X 3. Best motor response: obeys commands. Mood/affect normal. Cranial nerves normal (as tested). Finger-nose test abnormal. No motor deficit. No sensory deficit. Reflexes normal. LABS, X-RAYS, AND EKG Laboratory Tests: CBC w Diff: (YRIS: 03/31/2017 12:35) ( [facility] [place] 03/31/2017 12:53) Final results Test Result Flag Units (Reference) WHITE BLOOD COUNT 9.2 K/uL (4.5-11.5) RED BLOOD COUNT 4.70 M/uL (4.50-5.90) HEMOGLOBIN 13.8 gm/dL (13.5-17.5) HEMATOCRIT 41.6 % (41.0-53.0) MEAN CELL VOLUME 89 fL (80-100) MEAN CORPUSCULAR HGB 29 pg (26-34) MEAN CORPUSCULAR HGB CONC 33 g/dL (31-37) RED CELL DISTRIBUTION WIDTH 15.6 H % (11.6-14.8) PLATELET COUNT 221 K/uL (150-400) NEUTROPHIL % 59.2 % (50-75) LYMPH % 29.8 % (25-40) MONO % 6.5 % (3-14) EOSINOPHIL % 4.0 % (0-4) BASOPHIL % 0.5 % (0-2) Urine Drug Screen: (YRIS: 03/31/2017 13:10) ( [facility] [place] 13:52) Final results Test Result Flag Units (Reference) AMPHETAMINE/METHAMPHETAMINE POSITIVE H (NEGATIVE) BARBITURATE NEGATIVE (NEGATIVE) BENZODIAZEPINE NEGATIVE (NEGATIVE) CANNABINOID POSITIVE H (NEGATIVE) COCAINE NEGATIVE (NEGATIVE) ECSTASY NEGATIVE (NEGATIVE) METHADONE NEGATIVE (NEGATIVE) OPIATE NEGATIVEAF (NEGATIVE) The urine drug screen is a qualitative screening test fordrug overdose and abuse. All screen results should beconsidered as presumptive.Drugs screened for are as follows:BenzodiazepinesCocaineAmphetamines/MetamphetaminesTHC (Tetrahydrocannabinol)OpiatesBarbituratesEcstasyMethadonePositive results are unconfirmed. For confirmation, notifythe lab for the specimen to be sent to the reference lab.All confirmations must be performed by a differentmethodology.The ingestion of natural herbal and plant productscontaining Ephedra/Ephedra metabolites can produce in urineone or more substances capable of cross reacting withamphetamine/methamphetamine immunoassays. These testsprovide a preliminary result only. A more specificalternative chemical method must be used to obtain aconfirmed analytical result. Salicylate Level: (YRIS: 03/31/2017 12:35) ( [facility] 03/31/2017 13:56) Final results Test Result Flag Units (Reference) SALICYLATE 3.8 mg/dL (2.8-20) CHEM 13 PANEL: (YRIS: 03/31/2017 12:35) ( [facility] 03/31/2017 14:01) Final results Test Result Flag Units (Reference) GLUCOSE 123 H mg/dL (70-110) BUN 8 mg/dL (7-18) CREATININE 0.7 mg/dL (0.6-1.3) Estimated GFR >60 mL/min Estimated GFR- >60 mL/min Note: Persistent reduction over 3 months in eGFR<60 mL/min/1.73 m2 defines CKD. Patients with eGFR values>=60 mL/min/1.73 m2 may also have CKD if evidence ofpersistent proteinuria. Additional information may be foundat www.kidney.org. SODIUM 137 mmol/L (136-145) POTASSIUM 3.5 mmol/L (3.5-5.1) CHLORIDE 101 mmol/L (98-107) CARBON DIOXIDE 29 mmol/L (21-32) CALCIUM 8.5 mg/dL (8.5-10.1) TOTAL PROTEIN 7.2 g/dL (6.4-8.2) ALBUMIN 3.9 g/dL (3.3-5.0) BILIRUBIN, TOTAL 0.3 mg/dL (0.0-1.0) ALKALINE PHOSPHATASE 75 U/L (46-116) AST (SGOT) 22 U/L (15-37) ALT (SGPT) 20 U/L (12-78) MAGNESIUM 1.7 L mg/dL (1.8-2.4) CPK 169 U/L (24-260) TROPONIN I <0.05 ng/mL (0.00-1.5) TROPONIN REFERENCE RANGE:<0.1 NEGATIVE0.1-1.5 INDETERMINANT>1.5 POSITIVE ETHYL ALCOHOL <3 L mg/dL (3-10) ACETAMINOPHEN 0 L ug/mL (10-30) . PROGRESS AND PROCEDURES Course of Care: Pt respiratory rate went down to 4, with hypoventilation oand more somnolence Narcan 0.4 mg OIV and patient responded well and now alert c/o that he wants to leave. Pt told he is under a medical hold as he could if he left. Pt observed for 4 hours post narcan with no further somnolence. He was A&O times 3 and ambulatory without ataxia on discharge. Discussed need to stop all recreational drugs. Patient/family counseled. Disposition: Discharged. Condition: stable and improved. CLINICAL IMPRESSION Recreational drug overdose. INSTRUCTIONS (Stop all recreational drugs as it is very easy to overdose on new drugs found on the streets.). Warnings: Further evaluation is necessary. Follow-up: Follow up with your doctor in one week. Call for an appointment. Understanding of the discharge instructions verbalized by patient. (Electronically signed by Vince Cruz MD 04/01/2017 9:18)
--- NOTE | 2017-03-31 17:09 | ED CLINICAL REPORT ---
Clinical Report - Physicians/Mid Levels [facility] [address] [place] [address] 03/31/2017 12:13 Patient: JINA TOLEDO Time Seen: 12:44 Guero 2016. Arrived- By ambulance. Historian- patient and EMS personnel. CPT: ER phys charges level 5 (#[id number]). HISTORY OF PRESENT ILLNESS Chief Complaint: DRUG OVERDOSE and INTOXICATION. This occurred just prior to arrival. Toxic symptoms present in ED. Single drug taken- Heroin. No situational problems or alcohol recently. History of recent narcotics use. The symptoms are described as moderate. No suicidal thoughts or hallucinations. Similar symptoms previously: None. Recent medical care: Not recently seen/assessed. REVIEW OF SYSTEMS No headache, dizziness, chest pain, palpitations or abdominal pain. No vomiting, diarrhea, sore throat, cough or skin rash. No enlarged lymph nodes. He has had weakness. He has had difficulty breathing (Very low respiratory rate and hypoventilation.). All systems otherwise negative, except as recorded above. PAST HISTORY No history of prior suicide attempt. No history of psychiatric illness. SOCIAL HISTORY History of drug use: heroin. Has social support. Has place to stay. ADDITIONAL NOTES The nursing notes have been reviewed. PHYSICAL EXAM Vital Signs: 03/31/2017 12:15 BP: 133/79. HR: 79. RR: 6. O2 saturation: 96%. Pain level now: 0/10. Appearance: No acute distress. Lethargic. Eyes: Pupils equal, round and reactive to light. Extraocular movements normal. Moderate horizontal nystagmus when looking laterally. ENT: Normal ENT inspection. TM's normal. Pharynx normal. No depression of the gag reflex. Neck: Normal inspection. Neck supple. CVS: Normal heart rate and rhythm. Heart sounds normal. Pulses normal. Respiratory: No respiratory distress. Decreased air movement. Breath sounds normal. Abdomen: Soft and nontender. Back: Normal inspection. Skin: Skin warm. Normal skin color. No rash. Extremities: Extremities exhibit normal ROM. No lower extremity edema. Neuro: Oriented X 3. Moderately altered mental status. Patient slow to respond. Eyes open spontaneously. Best verbal response: oriented X 3. Best motor response: obeys commands. Mood/affect normal. Cranial nerves normal (as tested). Finger-nose test abnormal. No motor deficit. No sensory deficit. Reflexes normal. LABS, X-RAYS, AND EKG Laboratory Tests: CBC w Diff: (YRIS: 03/31/2017 12:35) ( [facility] [place] 03/31/2017 12:53) Final results Test Result Flag Units (Reference) WHITE BLOOD COUNT 9.2 K/uL (4.5-11.5) RED BLOOD COUNT 4.70 M/uL (4.50-5.90) HEMOGLOBIN 13.8 gm/dL (13.5-17.5) HEMATOCRIT 41.6 % (41.0-53.0) MEAN CELL VOLUME 89 fL (80-100) MEAN CORPUSCULAR HGB 29 pg (26-34) MEAN CORPUSCULAR HGB CONC 33 g/dL (31-37) RED CELL DISTRIBUTION WIDTH 15.6 H % (11.6-14.8) PLATELET COUNT 221 K/uL (150-400) NEUTROPHIL % 59.2 % (50-75) LYMPH % 29.8 % (25-40) MONO % 6.5 % (3-14) EOSINOPHIL % 4.0 % (0-4) BASOPHIL % 0.5 % (0-2) Urine Drug Screen: (YRIS: 03/31/2017 13:10) ( [facility] [place] 13:52) Final results Test Result Flag Units (Reference) AMPHETAMINE/METHAMPHETAMINE POSITIVE H (NEGATIVE) BARBITURATE NEGATIVE (NEGATIVE) BENZODIAZEPINE NEGATIVE (NEGATIVE) CANNABINOID POSITIVE H (NEGATIVE) COCAINE NEGATIVE (NEGATIVE) ECSTASY NEGATIVE (NEGATIVE) METHADONE NEGATIVE (NEGATIVE) OPIATE NEGATIVEAF (NEGATIVE) The urine drug screen is a qualitative screening test fordrug overdose and abuse. All screen results should beconsidered as presumptive.Drugs screened for are as follows:BenzodiazepinesCocaineAmphetamines/MetamphetaminesTHC (Tetrahydrocannabinol)OpiatesBarbituratesEcstasyMethadonePositive results are unconfirmed. For confirmation, notifythe lab for the specimen to be sent to the reference lab.All confirmations must be performed by a differentmethodology.The ingestion of natural herbal and plant productscontaining Ephedra/Ephedra metabolites can produce in urineone or more substances capable of cross reacting withamphetamine/methamphetamine immunoassays. These testsprovide a preliminary result only. A more specificalternative chemical method must be used to obtain aconfirmed analytical result. Salicylate Level: (YRIS: 03/31/2017 12:35) ( [facility] 03/31/2017 13:56) Final results Test Result Flag Units (Reference) SALICYLATE 3.8 mg/dL (2.8-20) CHEM 13 PANEL: (YRIS: 03/31/2017 12:35) ( [facility] 03/31/2017 14:01) Final results Test Result Flag Units (Reference) GLUCOSE 123 H mg/dL (70-110) BUN 8 mg/dL (7-18) CREATININE 0.7 mg/dL (0.6-1.3) Estimated GFR >60 mL/min Estimated GFR- >60 mL/min Note: Persistent reduction over 3 months in eGFR<60 mL/min/1.73 m2 defines CKD. Patients with eGFR values>=60 mL/min/1.73 m2 may also have CKD if evidence ofpersistent proteinuria. Additional information may be foundat www.kidney.org. SODIUM 137 mmol/L (136-145) POTASSIUM 3.5 mmol/L (3.5-5.1) CHLORIDE 101 mmol/L (98-107) CARBON DIOXIDE 29 mmol/L (21-32) CALCIUM 8.5 mg/dL (8.5-10.1) TOTAL PROTEIN 7.2 g/dL (6.4-8.2) ALBUMIN 3.9 g/dL (3.3-5.0) BILIRUBIN, TOTAL 0.3 mg/dL (0.0-1.0) ALKALINE PHOSPHATASE 75 U/L (46-116) AST (SGOT) 22 U/L (15-37) ALT (SGPT) 20 U/L (12-78) MAGNESIUM 1.7 L mg/dL (1.8-2.4) CPK 169 U/L (24-260) TROPONIN I <0.05 ng/mL (0.00-1.5) TROPONIN REFERENCE RANGE:<0.1 NEGATIVE0.1-1.5 INDETERMINANT>1.5 POSITIVE ETHYL ALCOHOL <3 L mg/dL (3-10) ACETAMINOPHEN 0 L ug/mL (10-30) . PROGRESS AND PROCEDURES Course of Care: Pt respiratory rate went down to 4, with hypoventilation oand more somnolence Narcan 0.4 mg OIV and patient responded well and now alert c/o that he wants to leave. Pt told he is under a medical hold as he could if he left. Pt observed for 4 hours post narcan with no further somnolence. He was A&O times 3 and ambulatory without ataxia on discharge. Discussed need to stop all recreational drugs. Patient/family counseled. Disposition: Discharged. Condition: stable and improved. CLINICAL IMPRESSION Recreational drug overdose. INSTRUCTIONS (Stop all recreational drugs as it is very easy to overdose on new drugs found on the streets.). Warnings: Further evaluation is necessary. Follow-up: Follow up with your doctor in one week. Call for an appointment. Understanding of the discharge instructions verbalized by patient. (Electronically signed by Vince Cruz MD 04/01/2017 9:18)
--- NOTE | 2017-03-31 17:09 | ED ORDER SUMMARY ---
..... Patient: JINA TOLEDO OrderSheet [facility] VisitID: [id number] [place] [address] 27y, M Registration Date/Time: 03/31/2017 ORDER SHEET Weight: 74.8 kg (stated) Allergies: No Known Drug Allergy GENERAL ORDERS: Cardiac Panel Stat (12:03/31/2017 Edu BACK) (Ack 12:51 TBergley) (12:54 TBergley) Urine Drug Screen Urgent (:03/31/2017 Edu BACK) (Ack 12:51 TBergley) (14:16 LSullivan R.N.) Ethyl Alcohol Urgent (:03/31/2017 Edu BACK) (Ack 12:51 TBergley) (12:54 TBergley) Acetaminophen Level Urgent (:03/31/2017 Edu BACK) (Ack 12:51 TBergley) (12:54 TBergley) Salicylate Level Urgent (:03/31/2017 Edu BACK) (Ack 12:51 TBergley) (12:54 TBergley) MEDICATION ORDERS: IV FLUIDS: IV NS : initial bolus 1000 mL (1000 mL/hr), then none - for X1 (NOW); Routine (:03/31/2017 Edu BACK) (12:56 LSullivan R.N.) Naloxone IV 0.4 mg (NOW) (:03/31/2017 Edu BACK) (12:56 LSullivan R.N.) ORDER SHEET NOTES: [Electronically signed by Sofia Greene R.N. (17:03/31/2017)] [Electronically signed by Vince Cruz MD (09:18 04/01/2017)] [Electronically locked/signed by Sofia Greene R.N. (17:03/31/2017)]
--- NOTE | 2017-04-01 09:18 | ED MAR SUMMARY ---
..... Medication Administration Record [facility] [address] [place] [address] Patient: JINA TOLEDO Visit ID: [id number] 27y, M Weight: 74.8 kg Height/Length: 72 in BMI: 22.4 ALLERGIES: No Known Drug Allergy Start 12:51 03/31/2017 Sofia Greene R.N. Medication Administered: IV NS (SALINE), Dose: IV Fluids, Rate: 1000 mL/hr, Dispensed: 1000 mL bag, Site: #1 left AC. Medication Ordered: IV NS : initial bolus 1000 mL (1000 mL/hr), then none - for X1 (NOW); Routine. Given 12:51 03/31/2017 Sofia Greene R.N. Medication Administered: NALOXONE [IVP], Dose: 0.4 mg IVP over 2 minute(s), Site: #1 left AC. Medication Ordered: Naloxone IV 0.4 mg (NOW).
--- NOTE | 2017-04-01 09:18 | ED MED RECONCILIATION SUMMARY ---
Patient: JINA TOLEDO Medication Reconciliation Report [facility] VisitID: [id number] [address] [place] [address] 27y, M Registration Date/Time: 03/31/2017 Weight: 74.8 kg Height/Length: 72 in. BMI: 22.4 ALLERGIES: No Known Drug Allergy The patient's Home Medications are listed below: NONE. The source(s) of the original Home Medication information: Not obtained. The following Medications were given to the patient in the Emergency Department: IV NS IV Fluids bolus 0, then 1000 mL/hr, administered: 03/31/2017 12:51:00 PM Naloxone [IVP] IVP 0.4 mg, administered: 03/31/2017 12:51:00 PM The following Medications were prescribed to the patient: None.
--- NOTE | 2017-04-01 09:18 | ED DISCHARGE INSTRUCTIONS ---
Patient: JINA TOLEDO General Instructions [facility] VisitID: [id number] [address] [place] [address] 27y, M Registration Date/Time: 03/31/2017 Recreational drug overdose. INSTRUCTIONS (Stop all recreational drugs as it is very easy to overdose on new drugs found on the streets.). Warnings: Further evaluation is necessary. Follow-up: Follow up with your doctor in one week. Call for an appointment. Understanding of the discharge instructions verbalized by patient. (Electronically signed by Vince Cruz MD 04/01/2017 9:18)
--- NOTE | 2017-04-01 09:18 | ED MED RECONCILIATION SUMMARY ---
Patient: JINA TOLEDO Medication Reconciliation Report [facility] VisitID: [id number] [address] [place] [address] 27y, M Registration Date/Time: 03/31/2017 Weight: 74.8 kg Height/Length: 72 in. BMI: 22.4 ALLERGIES: No Known Drug Allergy The patient's Home Medications are listed below: NONE. The source(s) of the original Home Medication information: Not obtained. The following Medications were given to the patient in the Emergency Department: IV NS IV Fluids bolus 0, then 1000 mL/hr, administered: 03/31/2017 12:51:00 PM Naloxone [IVP] IVP 0.4 mg, administered: 03/31/2017 12:51:00 PM The following Medications were prescribed to the patient: None.
--- NOTE | 2017-04-01 09:18 | ED MAR SUMMARY ---
..... Medication Administration Record [facility] [address] [place] [address] Patient: JINA TOLEDO Visit ID: [id number] 27y, M Weight: 74.8 kg Height/Length: 72 in BMI: 22.4 ALLERGIES: No Known Drug Allergy Start 12:51 03/31/2017 Sofia Greene R.N. Medication Administered: IV NS (SALINE), Dose: IV Fluids, Rate: 1000 mL/hr, Dispensed: 1000 mL bag, Site: #1 left AC. Medication Ordered: IV NS : initial bolus 1000 mL (1000 mL/hr), then none - for X1 (NOW); Routine. Given 12:51 03/31/2017 Sofia Greene R.N. Medication Administered: NALOXONE [IVP], Dose: 0.4 mg IVP over 2 minute(s), Site: #1 left AC. Medication Ordered: Naloxone IV 0.4 mg (NOW).
--- NOTE | 2017-04-01 09:18 | ED DISCHARGE INSTRUCTIONS ---
Patient: JINA TOLEDO General Instructions [facility] VisitID: [id number] [place] [address] 27y, M Registration Date/Time: 03/31/2017 Recreational drug overdose. INSTRUCTIONS (Stop all recreational drugs as it is very easy to overdose on new drugs found on the streets.). Warnings: Further evaluation is necessary. Follow-up: Follow up with your doctor in one week. Call for an appointment. Understanding of the discharge instructions verbalized by patient. (Electronically signed by Vince Cruz MD 04/01/2017 9:18)
== END 2017-03-31 17:11 | disposition home or self-care (01) ==
LOC: ED SRH 12:12
DX: T40.1X1A Poisoning by heroin, accidental (unintentional), initial encounter (principal); X58.XXXA Exposure to other specified factors, initial encounter; Y93.89 Activity, other specified; Y99.9 Unspecified external cause status; Y92.9 Unspecified place or not applicable; F17.290 Nicotine dependence, other tobacco product, uncomplicated
CPT/HCPCS: 83526; 90100; 90616; 92010; 92610; 92720; 92760; 92761; 92762; 92763; 92764; 92765; 92766; 92767; 92780; 95059; 97000